=== PATIENT | female | born 1965 | race Caucasian/White ===

== ENCOUNTER 2019-03-25 22:56 | Emergency (ER) | payer OTHER ==
[~2019-03-25] VITALS: Ht 170.2 cm; Wt 70.3 kg
[2019-03-26] MEDS ORDERED: acetaminophen 325mg/10.15ml oral unit dose solution PO ONE (00:30)
[2019-03-26] MEDS ORDERED: LIDOcaine Viscous 15ml cup MM ONE (00:30)
[2019-03-26] MEDS ORDERED: CODE10LI PO (00:44)
[2019-03-26 01:02] VITALS: BP 131/103
== END 2019-03-26 01:03 | disposition home or self-care (01) ==
LOC: ER 22:57
DX: J04.0 Acute laryngitis (principal); J45.909 Unspecified asthma, uncomplicated; Z88.8 Allergy status to other drugs, medicaments and biological substances; Z79.899 Other long term (current) drug therapy
CPT/HCPCS: 99283